=== PATIENT | female | born 1970 | race Caucasian/White ===

== ENCOUNTER 2017-08-01 21:28 | Emergency (ER) | payer MEDICAID, OTHER ==
[~2017-08-01] VITALS: Ht 160 cm; Wt 65.0 kg
[2017-08-01] MEDS ORDERED: METOCLOPRAMIDE 5 MG/ML, 2ML IVPush ONE (22:00)
[2017-08-01] MEDS ORDERED: SODIUM CHLORIDE 0.9% 1,000ML IVBOLUS ONE (22:00)
[2017-08-01] MEDS ORDERED: SODIUM CHLORIDE FLUSH 10ML SYR IVF ONE (22:00)
[2017-08-01] MEDS ORDERED: HYDROmorphone 2 MG/ML, 1ML ONE (22:21)
[2017-08-01] MEDS ORDERED: METOCLOPRAMIDE 5 MG/ML, 2ML ONE (22:21)
[2017-08-01] MEDS: HYDROmorphone 1 MG/ML, 1ML IVPush PRN ×2 (22:40→23:09)
[2017-08-01 22:41] LABS: HEMATOCRIT 38.7 % (34.6-47.8); HEMOGLOBIN 13.6 g/dL (11.7-16.4); WHITE BLOOD COUNT 18.9 x10^3/uL (3.4-10)
[2017-08-01 22:50] LABS: ASPARTATE AMINO TRANSFERASE 14 U/L (15-37); BLOOD UREA NITROGEN 9 mg/dL (7-18)
[2017-08-01 23:00] LABS: DIFF TOTAL CELLS COUNTED 100 CELL DIFF
[2017-08-01 23:01] LABS: VERIFY COUNTS? YES
[2017-08-01 23:03] LABS: HYPOCHROMIA 1+
[2017-08-02] MEDS ORDERED: GOLYTELY 4,000ML ORAL.SOL PO ONE
[2017-08-02 00:01] VITALS: BP 117/80
== END 2017-08-02 00:04 | disposition home or self-care (01) ==
LOC: ED 22:19
DX: K59.00 Constipation, unspecified (principal); R10.84 Generalized abdominal pain; G89.29 Other chronic pain; Z90.49 Acquired absence of other specified parts of digestive tract; Z88.5 Allergy status to narcotic agent; Z88.6 Allergy status to analgesic agent
CPT/HCPCS: 36415; 74020; 76700; 80053; 80074; 81003; 83690; 84703; 85025; 96361; 96374; 96375; 99285; J1170; J2765; J7030

== ENCOUNTER 2017-11-11 15:45 | Emergency (ER) | payer MEDICAID ==
[~2017-11-11] VITALS: Ht 157.5 cm; Wt 56.4 kg
[2017-11-11 16:29] LABS: BASOPHILS # (AUTO) 0.06 x10^3/uL (0-0.1); BASOPHILS % (AUTO) 0 % (0-1); EOSINOPHILS # (AUTO) 0.15 x10^3/uL (0-0.4); EOSINOPHILS % (AUTO) 1 % (1-7); LYMPHOCYTES % (AUTO) 25 % (22-44); MD NO; MEAN CORPUSCULAR HEMOGLOBIN 33.6 pg (27.0-34.8); MEAN CORPUSCULAR HGB CONC 34.2 g/dL (32.4-35.8); MEAN CORPUSCULAR VOLUME 98.2 fL (80-100); MEAN PLATELET VOLUME 7.7 fL (7.4-10.4); MONOCYTES # (AUTO) 0.87 x10^3/uL (0.2-0.8); MONOCYTES % (AUTO) 6 % (2-9); NEUTROPHILS # (AUTO) 10.34 x10^3/uL (1.8-6.8); NEUTROPHILS % (AUTO) 68 % (42-75); PLATELET COUNT 563 x10^3/uL (130-400); RED BLOOD COUNT 4.49 x10^6/uL (3.82-5.3); RED CELL DISTRIBUTION WIDTH 14.3 % (9.6-15.2)
[2017-11-11 16:38] LABS: ALBUMIN 3.7 g/dL (3.4-5.0); ANION GAP 6 mmol/L (5-15); CALCIUM 9.4 mg/dL (8.5-10.1); CHLORIDE 104 mmol/L (98-107)
[2017-11-11 16:41] LABS: ALANINE AMINOTRANSFERASE 18 U/L (12-78); ALKALINE PHOSPHATASE 74 U/L (45-117); BILIRUBIN,TOTAL 0.5 mg/dL (0.2-1.0); CREATININE 0.71 mg/dL (0.55-1.02); TOTAL PROTEIN 7.7 g/dL (6.4-8.2)
[2017-11-11] MEDS ORDERED: KETOROLAC 30 MG/1 ML IM ONE (18:30)
[2017-11-11] MEDS ORDERED: KETOROLAC 30 MG/1 ML ONE (19:01)
[2017-11-11] MEDS ORDERED: MORPHINE SULFATE 4 MG/ML, 1ML ONE ×2 (19:01→19:53)
[2017-11-11] MEDS: MORPHINE SULFATE 4 MG/ML, 1ML IVPush PRN ×2 (19:12→19:59)
[2017-11-11] MEDS ORDERED: METOCLOPRAMIDE 5 MG/ML, 2ML ONE (19:53)
[2017-11-11] MEDS ORDERED: METOCLOPRAMIDE 5 MG/ML, 2ML IVPush ONE (20:00)
[2017-11-11 20:09] LABS: MICROSCOPIC NOT IND
[2017-11-11 20:11] LABS: CULTURE INDICATED? NO
[2017-11-11 20:24] VITALS: BP 118/72
== END 2017-11-11 20:32 | disposition home or self-care (01) ==
LOC: ED 20:26
DX: R33.9 Retention of urine, unspecified (principal); D72.829 Elevated white blood cell count, unspecified; J44.9 Chronic obstructive pulmonary disease, unspecified; Z90.49 Acquired absence of other specified parts of digestive tract; Z87.442 Personal history of urinary calculi
CPT/HCPCS: 36415; 51702; 74176; 80053; 81003; 83690; 85025; 96372; 96374; 96375; 96376; 99285; J1885; J2765

== ENCOUNTER 2017-11-14 17:14 | Emergency (ER) | payer MEDICAID ==
[~2017-11-14] VITALS: Ht 157.5 cm; Wt 56.4 kg
[2017-11-14] MEDS ORDERED: MONT10TA6 PO (17:52)
[2017-11-14] MEDS ORDERED: QUET150T PO (17:54)
[2017-11-14] MEDS ORDERED: ALBU90AE INH (17:54)
[2017-11-14] MEDS ORDERED: SODIUM CHLORIDE FLUSH 10ML SYR IVF ONE (18:00)
[2017-11-14] MEDS ORDERED: METOCLOPRAMIDE 5 MG/ML, 2ML IVPush ONE (18:00)
[2017-11-14] MEDS ORDERED: MORPHINE SULFATE 4 MG/ML, 1ML IVPush PRN (18:00)
[2017-11-14] MEDS ORDERED: MORPHINE SULFATE 4 MG/ML, 1ML ONE (18:07)
[2017-11-14] MEDS ORDERED: METOCLOPRAMIDE 5 MG/ML, 2ML ONE (18:07)
[2017-11-14 18:10] LABS: BASOPHILS # (AUTO) 0.06 x10^3/uL (0-0.1); BASOPHILS % (AUTO) 1 % (0-1); EOSINOPHILS % (AUTO) 1 % (1-7); LYMPHOCYTES # (AUTO) 3.89 x10^3/uL (1-3.4); LYMPHOCYTES % (AUTO) 28 % (22-44); MD NO; MEAN CORPUSCULAR HEMOGLOBIN 33.8 pg (27.0-34.8); MEAN CORPUSCULAR HGB CONC 34.7 g/dL (32.4-35.8); MEAN CORPUSCULAR VOLUME 97.3 fL (80-100); MEAN PLATELET VOLUME 7.4 fL (7.4-10.4); MONOCYTES # (AUTO) 0.75 x10^3/uL (0.2-0.8); MONOCYTES % (AUTO) 5 % (2-9); NEUTROPHILS # (AUTO) 9.03 x10^3/uL (1.8-6.8); NEUTROPHILS % (AUTO) 65 % (42-75); PLATELET COUNT 591 x10^3/uL (130-400); RED BLOOD COUNT 4.43 x10^6/uL (3.82-5.3)
[2017-11-14 18:17] VITALS: BP 134/90
[2017-11-14 18:20] LABS: ALANINE AMINOTRANSFERASE 21 U/L (12-78); ALBUMIN 4.2 g/dL (3.4-5.0); ANION GAP 7 mmol/L (5-15); CALCIUM 9.3 mg/dL (8.5-10.1); CHLORIDE 105 mmol/L (98-107)
[2017-11-14 18:25] LABS: ALKALINE PHOSPHATASE 82 U/L (45-117); BILIRUBIN,TOTAL 0.3 mg/dL (0.2-1.0); TOTAL PROTEIN 8.5 g/dL (6.4-8.2)
[2017-11-14 18:56] LABS: MICROSCOPIC NOT IND
[2017-11-14 18:59] LABS: CULTURE INDICATED? NO
[2017-11-14] MEDS ORDERED: PROMETHAZINE 25 MG/ML, 1ML IM ONE (19:00)
[2017-11-14] MEDS ORDERED: PROMETHAZINE 25 MG/ML, 1ML ONE (19:09)
== END 2017-11-14 19:43 | disposition home or self-care (01) ==
LOC: ED 19:27
DX: R10.13 Epigastric pain (principal); R10.11 Right upper quadrant pain; G89.29 Other chronic pain; R14.0 Abdominal distension (gaseous); J44.9 Chronic obstructive pulmonary disease, unspecified
CPT/HCPCS: 36415; 74021; 80053; 81003; 83690; 84703; 85025; 93005; 96372; 96374; 96375; 99285; J2550; J2765

== ENCOUNTER 2017-12-10 15:30 | Emergency (ER) | payer MEDICAID ==
[~2017-12-10] VITALS: Ht 157.5 cm; Wt 58.9 kg
[~2017-12-10 15:30] MED LIST: ALBU90AE INH; MONT10TA6 PO; QUET150T PO
[2017-12-10 16:38] LABS: ALANINE AMINOTRANSFERASE 20 U/L (12-78); ALBUMIN 3.9 g/dL (3.4-5.0); ANION GAP 9 mmol/L (5-15); CALCIUM 9.2 mg/dL (8.5-10.1); CHLORIDE 103 mmol/L (98-107); CREATININE 0.69 mg/dL (0.55-1.02)
[2017-12-10 16:43] LABS: ALKALINE PHOSPHATASE 79 U/L (45-117); BILIRUBIN,TOTAL 0.6 mg/dL (0.2-1.0); MEAN CORPUSCULAR HEMOGLOBIN 33.6 pg (27.0-34.8); MEAN CORPUSCULAR HGB CONC 34.3 g/dL (32.4-35.8); MEAN CORPUSCULAR VOLUME 97.9 fL (80-100); MEAN PLATELET VOLUME 7.7 fL (7.4-10.4); PLATELET COUNT 463 x10^3/uL (130-400); RED BLOOD COUNT 4.51 x10^6/uL (3.82-5.3); RED CELL DISTRIBUTION WIDTH 14.2 % (9.6-15.2); TOTAL PROTEIN 8.3 g/dL (6.4-8.2)
[2017-12-10 16:52] LABS: BASOPHILS # (AUTO) 0.02 x10^3/uL (0-0.1); BASOPHILS % (AUTO) 0 % (0-1); EOSINOPHILS # (AUTO) 0.15 x10^3/uL (0-0.4); EOSINOPHILS % (AUTO) 1 % (1-7); LYMPHOCYTES # (AUTO) 3.81 x10^3/uL (1-3.4); LYMPHOCYTES % (AUTO) 19 % (22-44); MD SCAN; MONOCYTES # (AUTO) 0.72 x10^3/uL (0.2-0.8); MONOCYTES % (AUTO) 4 % (2-9); NEUTROPHILS # (AUTO) 15.79 x10^3/uL (1.8-6.8); NEUTROPHILS % (AUTO) 77 % (42-75)
[2017-12-10] MEDS ORDERED: HYDROmorphone 1 MG/ML, 1ML IM ONE (17:30)
[2017-12-10 17:31] LABS: MICROSCOPIC NOT IND
[2017-12-10] MEDS ORDERED: ASTHMA MED (17:36)
[2017-12-10] MEDS ORDERED: HYDROmorphone 2 MG/ML, 1ML ONE (17:38)
[2017-12-10 17:42] LABS: CULTURE INDICATED? NO
[2017-12-10 18:36] VITALS: BP 122/71
[2017-12-10] MEDS ORDERED: MAALOX/HYOSCYAMINE/LIDOCAINE 45 ML BTL PO ONE (19:00)
== END 2017-12-10 19:05 | disposition home or self-care (01) ==
LOC: ED 18:22
DX: R33.9 Retention of urine, unspecified (principal); G89.29 Other chronic pain; R10.13 Epigastric pain; F17.200 Nicotine dependence, unspecified, uncomplicated
CPT/HCPCS: 36415; 51702; 74018; 76770; 80053; 81003; 83690; 84703; 85025; 96372; 99285; J1170

== ENCOUNTER 2018-02-20 10:49 | Emergency (ER) | payer MEDICAID ==
[~2018-02-20] VITALS: Ht 157.5 cm; Wt 56.5 kg
[~2018-02-20 10:49] MED LIST changes: +ASTHMA MED
[2018-02-20] MEDS ORDERED: KETOROLAC 30 MG/1 ML ONE (11:17)
[2018-02-20] MEDS ORDERED: ALBUTEROL/IPRATROPIUM 2.5MG/0.5MG, 3 ML ONE (11:24)
[2018-02-20] MEDS ORDERED: KETOROLAC 30 MG/1 ML IM ONE (11:30)
[2018-02-20] MEDS ORDERED: ALBUTEROL/IPRATROPIUM 2.5MG/0.5MG, 3 ML NPPB ONE (11:30)
[2018-02-20 12:40] VITALS: BP 131/82
== END 2018-02-20 12:41 | disposition home or self-care (01) ==
LOC: ED 11:32
DX: J20.8 Acute bronchitis due to other specified organisms (principal); B97.89 Other viral agents as the cause of diseases classified elsewhere; J44.0 Chronic obstructive pulmonary disease with (acute) lower respiratory infection; F17.200 Nicotine dependence, unspecified, uncomplicated; Z90.89 Acquired absence of other organs
CPT/HCPCS: 71046; 93005; 94640; 96372; 99284; J1885; J7512; J7620

== ENCOUNTER 2018-02-21 13:45 | Emergency (ER) | payer MEDICAID ==
[~2018-02-21] VITALS: Ht 157.5 cm; Wt 56.2 kg
[2018-02-21] MEDS ORDERED: DIAZEPAM 5 MG TABLET PO ONE (14:30)
[2018-02-21] MEDS ORDERED: KETOROLAC 60 MG/2 ML IVPush ONE (14:30)
[2018-02-21] MEDS ORDERED: SODIUM CHLORIDE 0.9% 1,000ML IVBOLUS ONE (14:30)
[2018-02-21] MEDS ORDERED: methylPREDNISolone SOD SUCC 125 MG/2 ML IVP ONE (14:30)
[2018-02-21] MEDS: ALBUTEROL/IPRATROPIUM 2.5MG/0.5MG, 3 ML NPPB SCH (14:35)
[2018-02-21] MEDS ORDERED: ALBUTEROL/IPRATROPIUM 2.5MG/0.5MG, 3 ML ONE (14:35)
[2018-02-21] MEDS ORDERED: KETOROLAC 30 MG/1 ML ONE (14:44)
[2018-02-21] MEDS ORDERED: methylPREDNISolone SOD SUCC 125 MG/2 ML ONE (14:44)
[2018-02-21] MEDS ORDERED: DIAZEPAM 5 MG TABLET ONE (14:44)
[2018-02-21 15:02] VITALS: BP 152/88
== END 2018-02-21 16:12 | disposition home or self-care (01) ==
LOC: ED 14:37
DX: J44.1 Chronic obstructive pulmonary disease with (acute) exacerbation (principal); R09.1 Pleurisy; Z88.6 Allergy status to analgesic agent; Z88.8 Allergy status to other drugs, medicaments and biological substances
CPT/HCPCS: 71045; 94640; 96374; 96375; 99284; J1885; J2930; J7030; J7620

== ENCOUNTER 2018-02-22 10:30 | Inpatient (IN) | payer MEDICAID ==
[~2018-02-22] VITALS: Ht 157.5 cm; Wt 56.0 kg
[2018-02-22] MEDS ORDERED: SODIUM CHLORIDE 0.9% 1,000ML IVBOLUS ONE (11:00)
[2018-02-22] MEDS ORDERED: ONDANSETRON 2MG/ML, 2ML IVPush ONE (11:00)
[2018-02-22] MEDS ORDERED: SODIUM CHLORIDE FLUSH 10ML SYR IVF ONE (11:00)
[2018-02-22] MEDS ORDERED: KETOROLAC 30 MG/1 ML IVPush ONE (11:00)
[2018-02-22] MEDS ORDERED: ALBUTEROL/IPRATROPIUM 2.5MG/0.5MG, 3 ML NPPB ONE (11:00)
[2018-02-22] MEDS ORDERED: methylPREDNISolone SOD SUCC 125 MG/2 ML IVPush SCH ×2 (11:00→15:00)
[2018-02-22] MEDS ORDERED: ALBUTEROL/IPRATROPIUM 2.5MG/0.5MG, 3 ML ONE (11:10)
[2018-02-22] MEDS ORDERED: PROMETHAZINE 25 MG/ML, 1ML ONE (11:11)
[2018-02-22] MEDS ORDERED: KETOROLAC 30 MG/1 ML ONE (11:11)
[2018-02-22] MEDS ORDERED: methylPREDNISolone SOD SUCC 125 MG/2 ML ONE (11:12)
[2018-02-22] MEDS ORDERED: MORPHINE SULFATE 4 MG/ML, 1ML ONE ×2 (11:12→13:01)
[2018-02-22] MEDS: MORPHINE SULFATE 4 MG/ML, 1ML IVPush PRN ×2 (11:15→13:03)
[2018-02-22 11:23] LABS: BASOPHILS # (AUTO) 0.01 x10^3/uL (0-0.1); BASOPHILS % (AUTO) 0 % (0-1); EOSINOPHILS % (AUTO) 0 % (1-7); LYMPHOCYTES # (AUTO) 1.78 x10^3/uL (1-3.4); LYMPHOCYTES % (AUTO) 11 % (22-44); MD NO; MEAN CORPUSCULAR HGB CONC 33.7 g/dL (32.4-35.8); MEAN CORPUSCULAR VOLUME 97.8 fL (80-100); MEAN PLATELET VOLUME 7.3 fL (7.4-10.4); MONOCYTES # (AUTO) 0.81 x10^3/uL (0.2-0.8); MONOCYTES % (AUTO) 5 % (2-9); NEUTROPHILS # (AUTO) 13.95 x10^3/uL (1.8-6.8); NEUTROPHILS % (AUTO) 84 % (42-75); PLATELET COUNT 531 x10^3/uL (130-400); RED BLOOD COUNT 4.28 x10^6/uL (3.82-5.3)
[2018-02-22] MEDS ORDERED: ALBUTEROL 0.5%, 20ML ONE (11:23)
[2018-02-22] MEDS ORDERED: PROMETHAZINE 25 MG/ML, 1ML IM ONE (11:30)
[2018-02-22] MEDS ORDERED: ALBUTEROL 0.5%, 20ML NPPBCONT ONE (11:30)
[2018-02-22 11:35] LABS: ALANINE AMINOTRANSFERASE 27 U/L (12-78); ALBUMIN 3.7 g/dL (3.4-5.0); ANION GAP 9 mmol/L (5-15); CHLORIDE 106 mmol/L (98-107); CREATININE 0.61 mg/dL (0.55-1.02)
[2018-02-22 11:37] LABS: ALKALINE PHOSPHATASE 70 U/L (45-117); BILIRUBIN,TOTAL 0.2 mg/dL (0.2-1.0); TOTAL PROTEIN 7.6 g/dL (6.4-8.2)
[2018-02-22] MEDS ORDERED: LORazepam 2 MG/ML, 1ML IVPush ONE (13:00)
[2018-02-22] MEDS ORDERED: LORazepam 2 MG/ML, 1ML ONE (13:02)
[2018-02-22] MEDS ORDERED: DIPHENHYDRAMINE 25 MG CAPSULE PO ONE (14:00)
[2018-02-22] MEDS ORDERED: BENZONATATE 100 MG CAPSULE PO ONE (14:00)
[2018-02-22] MEDS ORDERED: ONDANSETRON ODT 4 MG PO PRN (14:30)
[2018-02-22] MEDS ORDERED: ACETAMINOPHEN 325 MG TABLET PO PRN (14:30)
[2018-02-22] MEDS ORDERED: ONDANSETRON 2MG/ML, 2ML IVPush PRN (14:30)
[2018-02-22 14:45] VITALS: BP 145/87
[2018-02-22] MEDS ORDERED: ALBUTEROL SULFATE 2.5 MG/3 ML NPPB PRN (15:00)
[2018-02-22] MEDS ORDERED: ENOXAPARIN 40 MG/0.4 ML SQ SCH (15:00)
[2018-02-22] MEDS ORDERED: NICOTINE 21 MG/24 HR PATCH.TD24 TD SCH (15:00)
[2018-02-22] MEDS ORDERED: DOXYCYCLINE 100 MG in DEXTROSE 5% 250 ML IV SCH (15:00)
[2018-02-22] MEDS ORDERED: KETOROLAC 30 MG/1 ML IVPush PRN (15:00)
[2018-02-22 15:11] VITALS: BP 138/71
[2018-02-22] MEDS ORDERED: LORazepam 1MG TABLET PO PRN (15:30)
[2018-02-22] MEDS ORDERED: QUETIAPINE FUMARATE 150 MG PO SCH (21:00)
[2018-02-23] MEDS ORDERED: FLUTICASONE/VILANTEROL 200-25MCG/INH INH SCH (09:00)
[2018-02-23] MEDS ORDERED: MONTELUKAST 10 MG TABLET PO SCH (09:00)
[2018-02-23] MEDS ORDERED: PRED1TAB PO (13:49)
[2018-02-23] MEDS ORDERED: AZIT250T PO (13:49)
[2018-02-23] MEDS ORDERED: FLUT1AER IH (13:49)
[2018-02-23] MEDS ORDERED: CYCL-259 PO (13:49)
== END 2018-02-22 15:30 | disposition left against medical advice (07) | DRG 202 ==
LOC: ED 12:34 → EDIP 13:21 → 3NW 14:34
PROVIDERS: ADMIT Hospitalist; ATTEND Hospitalist
DX: J45.902 Unspecified asthma with status asthmaticus (principal); J44.1 Chronic obstructive pulmonary disease with (acute) exacerbation; R65.10 Systemic inflammatory response syndrome (SIRS) of non-infectious origin without acute organ dysfunction; D72.829 Elevated white blood cell count, unspecified; F17.210 Nicotine dependence, cigarettes, uncomplicated; R79.89 Other specified abnormal findings of blood chemistry; G47.00 Insomnia, unspecified; Z90.49 Acquired absence of other specified parts of digestive tract; Z80.9 Family history of malignant neoplasm, unspecified
CPT/HCPCS: 36415; 71045; 80053; 83605; 83735; 84145; 85025; 87040; 94640; 94644; 96372; 96374; 96375; 96376; J1885; J2550; J7620; J2060; J2930; J7030; Q0163

== ENCOUNTER 2018-02-23 12:52 | Inpatient (IN) | payer MEDICAID ==
[~2018-02-23] VITALS: Ht 157.5 cm; Wt 56.2 kg
[2018-02-23] MEDS ORDERED: methylPREDNISolone SOD SUCC 125 MG/2 ML IVPush SCH ×2 (13:30→14:30)
[2018-02-23] MEDS ORDERED: ALBUTEROL/IPRATROPIUM 2.5MG/0.5MG, 3 ML ONE (13:34)
[2018-02-23] MEDS ORDERED: PROMETHAZINE 25 MG/ML, 1ML ONE (13:39)
[2018-02-23] MEDS ORDERED: methylPREDNISolone SOD SUCC 125 MG/2 ML ONE (13:39)
[2018-02-23 13:49] VITALS: BP 142/79
[2018-02-23 13:49] LABS: MEAN CORPUSCULAR HEMOGLOBIN 33.5 pg (27.0-34.8); MEAN CORPUSCULAR HGB CONC 34.1 g/dL (32.4-35.8); MEAN CORPUSCULAR VOLUME 98.1 fL (80-100); MEAN PLATELET VOLUME 7.1 fL (7.4-10.4); PLATELET COUNT 519 x10^3/uL (130-400); RED BLOOD COUNT 4.12 x10^6/uL (3.82-5.3); RED CELL DISTRIBUTION WIDTH 14.9 % (9.6-15.2)
[2018-02-23] MEDS ORDERED: CYCL-259 PO (13:49)
[2018-02-23] MEDS ORDERED: FLUT1AER IH (13:49)
[2018-02-23] MEDS ORDERED: AZIT250T PO (13:49)
[2018-02-23] MEDS ORDERED: PRED1TAB PO (13:49)
[2018-02-23] MEDS ORDERED: CYCLOBENZAPRINE 10 MG TABLET ONE (13:52)
[2018-02-23] MEDS ORDERED: KETOROLAC 30 MG/1 ML ONE (13:52)
[2018-02-23 13:55] LABS: ALBUMIN 3.8 g/dL (3.4-5.0); ANION GAP 7 mmol/L (5-15); CALCIUM 9.4 mg/dL (8.5-10.1); CHLORIDE 106 mmol/L (98-107); CREATININE 0.64 mg/dL (0.55-1.02)
[2018-02-23] MEDS ORDERED: PROMETHAZINE 25 MG/ML, 1ML IM ONE (14:00)
[2018-02-23] MEDS ORDERED: KETOROLAC 30 MG/1 ML IVPush ONE (14:00)
[2018-02-23 14:05] LABS: MD YES
[2018-02-23 14:25] LABS: FREE T4 (FREE THYROXINE) 0.81 ng/dL (0.76-1.46)
[2018-02-23] MEDS ORDERED: CYCLOBENZAPRINE 10 MG TABLET PO PRN (14:30)
[2018-02-23] MEDS ORDERED: POLYETHYLENE GLYCOL 17 GM PACKET PO PRN (14:30)
[2018-02-23] MEDS ORDERED: ONDANSETRON ODT 4 MG PO PRN (14:30)
[2018-02-23] MEDS ORDERED: TEMPLATE NON-FORMULARY MED. (Albuterol Sulfate (Proair Respiclick) 2 PUFF(S)) INH PRN (14:30)
[2018-02-23] MEDS ORDERED: ENOXAPARIN 40 MG/0.4 ML SQ SCH (14:30)
[2018-02-23] MEDS ORDERED: LABETALOL 5MG/ML, 20ML IVPush PRN (14:30)
[2018-02-23] MEDS ORDERED: ONDANSETRON 2MG/ML, 2ML IVPush PRN (14:30)
[2018-02-23 14:46] LABS: LYMPHS% (MANUAL) 10 % (22-44); MONOS#(MANUAL) 0.21 x10^3/uL (0.3-2.7); MONOS% (MANUAL) 1 % (2-9); MYELOCYTES# (MANUAL) 0.21 x10^3/uL (0-0); MYELOCYTES% (MANUAL) 1 % (0-0); SEG#(MANUAL) 18.48 x10^3/uL (1.8-6.8); SEGS% (MANUAL) 88 % (42-75)
[2018-02-23 14:47] LABS: <PLATELET ESTIMATE> INCREASED; <PLT MORPHOLOGY> NORMAL PLT MORPH; <RBC MORPHOLOGY> NORMAL
[2018-02-23] MEDS ORDERED: ALBUTEROL SULFATE 2.5 MG/3 ML NPPB SCH (15:00)
[2018-02-23] MEDS ORDERED: LORazepam 2 MG/ML, 1ML IVPush ONE (15:30)
[2018-02-23] MEDS ORDERED: CYCLOBENZAPRINE 10 MG TABLET PO ONE (16:00)
[2018-02-23] MEDS ORDERED: QUETIAPINE 100MG TABLET PO SCH (21:00)
[2018-02-24] MEDS ORDERED: SENNA/DOCUSATE TABLET PO SCH (09:00)
[2018-02-24] MEDS ORDERED: MONTELUKAST 10 MG TABLET PO SCH (09:00)
[2018-02-24] MEDS ORDERED: FLUTICASONE/VILANTEROL 100-25MCG/INH HOMEINH SCH (09:00)
== END 2018-02-23 15:35 | disposition left against medical advice (07) | DRG 203 ==
LOC: ED 13:55 → EDIP 13:56 → ED 14:13 → 3NE 15:06
PROVIDERS: ADMIT Internal Medicine; ATTEND Internal Medicine
DX: J45.52 Severe persistent asthma with status asthmaticus (principal); Z53.21 Procedure and treatment not carried out due to patient leaving prior to being seen by health care provider; J44.9 Chronic obstructive pulmonary disease, unspecified; R09.02 Hypoxemia; I50.9 Heart failure, unspecified; Z90.49 Acquired absence of other specified parts of digestive tract; Z88.6 Allergy status to analgesic agent; Z88.5 Allergy status to narcotic agent
CPT/HCPCS: 36415; 71045; 80048; 82040; 83735; 84100; 84439; 85025; 93005; 94640; 96374; 96375; 99285; J1885; J2550; J2930

== ENCOUNTER 2018-03-24 19:07 | Emergency (ER) | payer MEDICAID ==
[~2018-03-24] VITALS: Ht 157.5 cm; Wt 57.9 kg
[~2018-03-24 19:07] MED LIST changes: +AZIT250T PO; +CYCL-259 PO; +FLUT1AER IH; +PRED1TAB PO
[2018-03-24 19:11] VITALS: BP 170/131
[2018-03-24] MEDS ORDERED: SODIUM CHLORIDE FLUSH 10ML SYR IVF ONE (19:30)
[2018-03-24 19:38] LABS: ANION GAP 8 mmol/L (5-15); CALCIUM 8.9 mg/dL (8.5-10.1); CHLORIDE 106 mmol/L (98-107)
[2018-03-24 19:40] LABS: ALANINE AMINOTRANSFERASE 29 U/L (12-78); ALKALINE PHOSPHATASE 81 U/L (45-117); BILIRUBIN,TOTAL 0.3 mg/dL (0.2-1.0); CREATININE 0.67 mg/dL (0.55-1.02); TOTAL PROTEIN 7.9 g/dL (6.4-8.2)
[2018-03-24 19:42] LABS: BASOPHILS # (AUTO) 0.08 x10^3/uL (0-0.1); BASOPHILS % (AUTO) 1 % (0-1); EOSINOPHILS # (AUTO) 0.13 x10^3/uL (0-0.4); EOSINOPHILS % (AUTO) 1 % (1-7); LYMPHOCYTES % (AUTO) 30 % (22-44); MD NO; MEAN CORPUSCULAR HEMOGLOBIN 34.8 pg (27.0-34.8); MEAN CORPUSCULAR HGB CONC 34.5 g/dL (32.4-35.8); MEAN CORPUSCULAR VOLUME 100.7 fL (80-100); MEAN PLATELET VOLUME 6.8 fL (7.4-10.4); MONOCYTES % (AUTO) 5 % (2-9); NEUTROPHILS % (AUTO) 63 % (42-75); PLATELET COUNT 723 x10^3/uL (130-400); RED BLOOD COUNT 4.15 x10^6/uL (3.82-5.3); RED CELL DISTRIBUTION WIDTH 15.8 % (9.6-15.2)
[2018-03-24] MEDS ORDERED: SODIUM CHLORIDE 0.9% 1,000ML IV ONE (20:00)
[2018-03-24] MEDS ORDERED: KETOROLAC 30 MG/1 ML IVPush ONE (20:00)
[2018-03-24] MEDS ORDERED: ONDANSETRON 2MG/ML, 2ML IVPush ONE (20:00)
[2018-03-24] MEDS ORDERED: MORPHINE SULFATE 4 MG/ML, 1ML IVPush PRN (20:00)
[2018-03-24] MEDS ORDERED: METOCLOPRAMIDE 5 MG/ML, 2ML ONE (20:15)
[2018-03-24] MEDS ORDERED: KETOROLAC 30 MG/1 ML ONE (20:15)
[2018-03-24] MEDS ORDERED: METOCLOPRAMIDE 5 MG/ML, 2ML IVPush ONE (20:30)
== END 2018-03-24 20:52 | disposition home or self-care (01) ==
LOC: ED 20:15
DX: R10.31 Right lower quadrant pain (principal); M54.9 Dorsalgia, unspecified; R11.2 Nausea with vomiting, unspecified; J44.9 Chronic obstructive pulmonary disease, unspecified; Z90.89 Acquired absence of other organs; Z87.442 Personal history of urinary calculi
CPT/HCPCS: 36415; 80053; 84703; 85025; 96361; 96374; 96375; 99284; J1885; J2765; J7030